=== PATIENT | female | born 1990 | race Two or more races ===

== ENCOUNTER 2021-06-11 06:25 | Observation (INO) | payer SELFPAY ==
[2021-06-11] VITALS (19 sets, daily range): BP systolic 73–121; BP diastolic 35–80
[~2021-06-11] VITALS: Ht 160 cm; Wt 72.7 kg
[~2021-06-11 06:25] MED LIST: HYDROmorphone 2 MG/ML VIAL IVP PRN; IV RINGERS,LACTATED 1000ML 1,000 ML IV SCH; MORPHINE SULFATE 2 MG/ML INJ. IVP PRN; PROCHLORPERAZINE 10 MG/2 ML VIAL. IVP PRN; fentaNYL PF VIAL 100 MCG/2 ML VIAL IVP PRN
[2021-06-11] MEDS ORDERED: LIDOCAINE 2% PF 5 ML VIAL. ONE (06:37)
[2021-06-11] MEDS ORDERED: ONDANSETRON PF 4 MG/2 ML VIAL. ONE (06:37)
[2021-06-11] MEDS ORDERED: PROPOFOL 10 MG/ML (20ML) VIAL. IV ONE (06:37)
[2021-06-11] MEDS ORDERED: DEXAMETHASONE SOD PHOS 4 MG/ML VIAL ONE (06:37)
[2021-06-11] MEDS ORDERED: DOXYCYCLINE HYCLATE 100 MG TABLET PO ONE (07:15)
[2021-06-11 07:17] LABS: BASO # 0.1 x10^3/uL (0.0-0.2); BASO % 1 % (0-3); EOS # 0.2 x10^3/uL (0.0-0.7); EOS % 3 % (0-3); HEMATOCRIT 40.2 % (36.0-47.0); HEMOGLOBIN 13.7 g/dL (12.0-15.5); LYMPH # 2.6 x10^3/uL (1.0-4.8); LYMPH % 34 % (24-48); MEAN CORPUSCULAR HEMOGLOBIN 30 pg (25-35); MEAN CORPUSCULAR HGB CONC 34 g/dL (31-37); MEAN CORPUSCULAR VOLUME 89 fL (79-100); MONO # 0.7 x10^3/uL (0.0-1.1); MONO % 9 % (0-9); NEUT # 4.1 x10^3/uL (1.8-7.7); NEUT % 54 % (31-73); PLATELET COUNT 225 x10^3/uL (140-400); WHITE BLOOD COUNT 7.6 x10^3/uL (4.0-11.0)
[2021-06-11] MEDS ORDERED: fentaNYL PF VIAL 100 MCG/2 ML VIAL ONE ×2 (07:33→07:34)
[2021-06-11] MEDS ORDERED: MIDAZOLAM HCL/PF 2 MG/2 ML VIAL. ONE (07:34)
--- NOTE | 2021-06-11 07:37 | PDOC1 ---
[facility] H&P Date of Admission: Date of Admission: History of Present Illness: [place] 30y who was originally referred for D&C on 04/29/21. The pt was called on the and returned the call 05/13. Since almost 2wks had passed it was surprising that the POC had not passed on there own. Another u/s was performed revealing the following: Persistent complex fluid and echogenic material within the endometrial canal which may represent residual blood products or retained products of conception. Normal ovaries. Medical management was discussed with the pt, but she ultimately decided for a D&C. PMH: Denies PSH: Denies Meds: None All: NKDA SH: no tob, no EtOH FH: noncontributory Medications: Meds: Current Medications Medications (Trade) Dose Ordered Sig/Tejal Route PRN Reason Start Time Stop Time Status Last Admin Dose Admin Doxycycline Hyclate (Vibra-Tab) 200 mg 1X ONCE PO 06/11/21 07:15 06/11/21 07:16 DC 06/11/21 07:11 Allergies: Coded Allergies: No Known Drug Allergies (Unverified , 06/07/21) Physical Exam: Vital Signs: Vital Signs Date Time Temp Pulse Resp B/P (MAP) Pulse Ox O2 Delivery O2 Flow Rate FiO2 06/11/21 06:58 97.9 80 16 116/69 99 Room Air 97.9 PE: GENERAL: No apparent distress. Alert and oriented. HEENT: Head normocephalic, atraumatic. NECK: Supple LUNGS: Clear to auscultation. HEART: RRR, S1, S2 present, pulses intact ABDOMEN: Soft, positive bowel sounds. EXTREMITIES: No cyanosis or edema. NEUROLOGIC: Normal speech, normal tone PSYCHIATRIC: Normal affect, normal mood. SKIN: No ulceration. Labs: Laboratory Tests Test 06/11/21 06:04 06/11/21 07:00 POC Urine HCG, Qualitative Hcg positive (Negative) White Blood Count 7.6 x10^3/uL (4.0-11.0) Red Blood Count 4.50 x10^6/uL (3.50-5.40) Hemoglobin 13.7 g/dL (12.0-15.5) Hematocrit 40.2 % (36.0-47.0) Mean Corpuscular Volume 89 fL (79-100) Mean Corpuscular Hemoglobin 30 pg (25-35) Mean Corpuscular Hemoglobin Concent 34 g/dL (31-37) Red Cell Distribution Width 14.0 % (11.5-14.5) Platelet Count 225 x10^3/uL (140-400) Neutrophils (%) (Auto) 54 % (31-73) Lymphocytes (%) (Auto) 34 % (24-48) Monocytes (%) (Auto) 9 % (0-9) Eosinophils (%) (Auto) 3 % (0-3) Basophils (%) (Auto) 1 % (0-3) Neutrophils # (Auto) 4.1 x10^3/uL (1.8-7.7) Lymphocytes # (Auto) 2.6 x10^3/uL (1.0-4.8) Monocytes # (Auto) 0.7 x10^3/uL (0.0-1.1) Eosinophils # (Auto) 0.2 x10^3/uL (0.0-0.7) Basophils # (Auto) 0.1 x10^3/uL (0.0-0.2) Laboratory Tests 06/11/21 07:00 Laboratory Tests 06/11/21 07:00 Assessment & Plan: A/P 30y with persistent complex fluid in uterus 1.) Persistent complex fluid in uterus likely retained POC, scheduled for D&C SELENA COSBY MD Jun 11, 2021 07:37
--- NOTE | 2021-06-11 08:33 | NUR ---
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 pT STATED SHE STARTED BLEEDING JANUARY 20 AND WENT TO HOSPITAL, WHERE PHYSICIAN TOLD HER SHE HAD HAD A SPONTANEOUS MISCARRIAGE. SHE SAYS SHE EXPELLED A CLOT AND BLOOD. ON JANUARY 29, SHE WAS STILL BLEEDING AND WENT TO PHYSICIAN, WHO GAVE HER SOME PILLS TO EXPEL THE REMAINING FETUS. ON February, SHE SAYS SHE WAS STILL BLEEDING. CURRENTLY, SHE IS HAVING YELLOW DISCHARGE. PT DENIES ANY SEXUAL INTERCOURSE SINCE JANUARY 20.
[2021-06-11] MEDS ORDERED: KETOROLAC 30 MG/ML VIAL. ONE (08:37)
[2021-06-11] MEDS ORDERED: SEVOFLURANE 16 TO 30 MINUTES. IH ONE (08:53)
[2021-06-11] MEDS ORDERED: ALBUMIN HUMAN 5% 500 ML IV ONE ×6 (09:03→11:16)
--- NOTE | 2021-06-11 09:50 | PDOC ---
Date and Time Near the conclusion of the procedure the patient had a sudden drop in ETCO2 and undetectable BP. No pulse obtainable, no heart tones, RSR. EBL 2+L CPR started, Calcium and epi given. Pulse returned within a couple minutes. Her BP has remained 110-120 with HR 90s since that time. Airway removed and taken to PACU. She is awake and following commands Albumin and blood started in OR Suspect acute hypovolemic shock from blood loss. Venous air or other embolus possible but less likely. Will transfuse and once euvolemic check Hb. Her preop was 13 She will need to stay for observation overnight. Current Medications Current Medications Fentanyl Citrate (Fentanyl 2ml Vial) 25 mcg PRN Q5MIN PRN IVP MILD PAIN 1-3; Start 06/11/21 at 06:00; Stop 06/11/21 at 20:00 Fentanyl Citrate (Fentanyl 2ml Vial) 50 mcg PRN Q5MIN PRN IVP MODERATE PAIN 4- 6; Start 06/11/21 at 06:00; Stop 06/11/21 at 20:00 Morphine Sulfate (Morphine Sulfate) 1 mg PRN Q10MIN PRN IVP SEVERE PAIN 7-10; Start 06/11/21 at 06:00; Stop 06/11/21 at 20:00 Ringer's Solution 1,000 ml @ 30 mls/hr Q24H IV ; Start 06/11/21 at 06:00; Stop 06/11/21 at 17:59 Hydromorphone HCl (Dilaudid) 0.5 mg PRN Q10MIN PRN IVP SEVERE PAIN 7-10, 2nd CHOICE; Start 06/11/21 at 06:00; Stop 06/11/21 at 20:00 Prochlorperazine Edisylate (Compazine) 5 mg PACU PRN PRN IVP NAUSEA, MRX1; S tart 06/11/21 at 06:00; Stop 06/11/21 at 20:00 Propofol (Diprivan) 200 mg STK-MED ONCE IV ; Start 06/11/21 at 06:37; Stop 06/11/21 at 06:37; Status DC Lidocaine HCl (Lidocaine Pf 2% Vial) 5 ml STK-MED ONCE .ROUTE ; Start 06/11/21 at 06:37; Stop 06/11/21 at 06:37; Status DC Ondansetron HCl (Zofran) 4 mg STK-MED ONCE .ROUTE ; Start 06/11/21 at 06:37; Stop 06/11/21 at 06:37; Status DC Dexamethasone Sodium Phosphate (Decadron) 4 mg STK-MED ONCE .ROUTE ; Start 06/11/21 at 06:37; Stop 06/11/21 at 06:37; Status DC Doxycycline Hyclate (Vibra-Tab) 200 mg 1X ONCE PO Last administered on 06/11/21at 07:11; Start 06/11/21 at 07:15; Stop 06/11/21 at 07:16; Status DC Fentanyl Citrate (Fentanyl 2ml Vial) 100 mcg STK-MED ONCE .ROUTE ; Start 06/11/21 at 07:33; Stop 06/11/21 at 07:33; Status DC Fentanyl Citrate (Fentanyl 2ml Vial) 100 mcg STK-MED ONCE .ROUTE ; Start 06/11/21 at 07:34; Stop 06/11/21 at 07:34; Status DC Midazolam HCl (Versed) 2 mg STK-MED ONCE .ROUTE ; Start 06/11/21 at 07:34; Stop 06/11/21 at 07:35; Status DC Ketorolac Tromethamine (Toradol 30mg Vial) 30 mg STK-MED ONCE .ROUTE ; Start 06/11/21 at 08:37; Stop 06/11/21 at 08:37; Status DC Sevoflurane (Ultane) 15 ml STK-MED ONCE IH ; Start 06/11/21 at 08:53; Stop 06/11/21 at 08:53; Status DC Albumin Human 500 ml @ As Directed STK-MED ONCE IV ; Start 06/11/21 at 09:03; Stop 06/11/21 at 09:04; Status DC Albumin Human 500 ml @ As Directed STK-MED ONCE IV ; Start 06/11/21 at 09:36; Stop 06/11/21 at 09:37; Status DC Albumin Human 500 ml @ 125 mls/hr 1X ONCE IV ; Start 06/11/21 at 09:45; Stop 06/11/21 at 13:44; Status UNV Active Scripts Active Reported No Known Medications Prior To Admisstion (Info) Each 1 Each DAILY Pertinent Labs/Test Laboratory Tests Test 06/11/21 06:04 06/11/21 06:47 06/11/21 07:00 Bedside Urine HCG, Qualitative Hcg positive (Negative) Maternal Serum HCG Beta Subunit 48 mIU/mL (0-5) White Blood Count 7.6 x10^3/uL (4.0-11.0) Red Blood Count 4.50 x10^6/uL (3.50-5.40) Hemoglobin 13.7 g/dL (12.0-15.5) Hematocrit 40.2 % (36.0-47.0) Mean Corpuscular Volume 89 fL (79-100) Mean Corpuscular Hemoglobin 30 pg (25-35) Mean Corpuscular Hemoglobin Concent 34 g/dL (31-37) Red Cell Distribution Width 14.0 % (11.5-14.5) Platelet Count 225 x10^3/uL (140-400) Neutrophils (%) (Auto) 54 % (31-73) Lymphocytes (%) (Auto) 34 % (24-48) Monocytes (%) (Auto) 9 % (0-9) Eosinophils (%) (Auto) 3 % (0-3) Basophils (%) (Auto) 1 % (0-3) Neutrophils # (Auto) 4.1 x10^3/uL (1.8-7.7) Lymphocytes # (Auto) 2.6 x10^3/uL (1.0-4.8) Monocytes # (Auto) 0.7 x10^3/uL (0.0-1.1) Eosinophils # (Auto) 0.2 x10^3/uL (0.0-0.7) Basophils # (Auto) 0.1 x10^3/uL (0.0-0.2) Laboratory Tests Test 06/11/21 06:04 06/11/21 06:47 06/11/21 07:00 Bedside Urine HCG, Qualitative Hcg positive (Negative) Maternal Serum HCG Beta Subunit 48 mIU/mL (0-5) White Blood Count 7.6 x10^3/uL (4.0-11.0) Red Blood Count 4.50 x10^6/uL (3.50-5.40) Hemoglobin 13.7 g/dL (12.0-15.5) Hematocrit 40.2 % (36.0-47.0) Mean Corpuscular Volume 89 fL (79-100) Mean Corpuscular Hemoglobin 30 pg (25-35) Mean Corpuscular Hemoglobin Concent 34 g/dL (31-37) Red Cell Distribution Width 14.0 % (11.5-14.5) Platelet Count 225 x10^3/uL (140-400) Neutrophils (%) (Auto) 54 % (31-73) Lymphocytes (%) (Auto) 34 % (24-48) Monocytes (%) (Auto) 9 % (0-9) Eosinophils (%) (Auto) 3 % (0-3) Basophils (%) (Auto) 1 % (0-3) Neutrophils # (Auto) 4.1 x10^3/uL (1.8-7.7) Lymphocytes # (Auto) 2.6 x10^3/uL (1.0-4.8) Monocytes # (Auto) 0.7 x10^3/uL (0.0-1.1) Eosinophils # (Auto) 0.2 x10^3/uL (0.0-0.7) Basophils # (Auto) 0.1 x10^3/uL (0.0-0.2) LAST VITALS Vital Signs Date Time Temp Pulse Resp B/P (MAP) Pulse Ox O2 Delivery O2 Flow Rate FiO2 06/11/21 06:58 97.9 80 16 116/69 99 Room Air 97.9 CHARLEEN NUGENT MD Jun 11, 2021 09:50
[2021-06-11] MEDS ORDERED: CALCIUM CHLORIDE 1,000 MG/10 ML DISP.SYRIN ONE (10:52)
[2021-06-11] MEDS ORDERED: EPINEPHrine SYRINGE 1 MG/10 ML SYRINGE ONE (10:52)
[2021-06-11 11:05] LABS: HEMATOCRIT 25.9 % (36.0-47.0); HEMOGLOBIN 8.5 g/dL (12.0-15.5); RED BLOOD COUNT 2.88 x10^6/uL (3.50-5.40); RED CELL DISTRIBUTION WIDTH 13.8 % (11.5-14.5); WHITE BLOOD COUNT 12.7 x10^3/uL (4.0-11.0)
[2021-06-11] MEDS ORDERED: IV NORMAL SALINE 1000ML BAG 1,000 ML IV SCH (11:15)
[2021-06-11] MEDS ORDERED: diphenhydrAMINE HCL 25 MG CAPSULE PO PRN (11:15)
[2021-06-11] MEDS ORDERED: 0.9 % SODIUM CHLORIDE 10 ML DISP.SYRIN. IV PRN (11:15)
[2021-06-11] MEDS ORDERED: MORPHINE SULFATE 2 MG/ML INJ. IV PRN (11:15)
[2021-06-11] MEDS ORDERED: NALOXONE 0.4 MG/ML VIAL. IV PRN (11:15)
[2021-06-11] MEDS ORDERED: DEXTROSE 50% 25 GM / 50ML DISP.SYRIN. IV PRN (11:15)
[2021-06-11] MEDS ORDERED: IBUPROFEN 200 MG TABLET. PO PRN (11:15)
[2021-06-11] MEDS ORDERED: diphenhydrAMINE 50 MG/ML VIAL IV PRN (11:15)
[2021-06-11] MEDS ORDERED: oxyCODONE/APAP 5/325 1 TAB TABLET PO PRN ×2 (11:15)
[2021-06-11] MEDS ORDERED: IV DEXTROSE 5 %-0.45 % NACL 1,000 ML IV SCH (11:15)
--- NOTE | 2021-06-11 12:26 | PDOC4 ---
OPERATIVE NOTE: PreOp Dx: Persistent complex fluid in uterus PostOp Dx: Retained POC Procedure: Suction D&C Surgeon: Hakeem Cosby Anesthesia: GETA EBL: 2000 cc Fluids: 500 cc colloid, 1000 cc crystalloid, 2 UpRBC Specimen: POC Complications: Coded during procedure likely related to hypovolemia from blood loss SELENA COSBY MD Jun 11, 2021 12:26
--- NOTE | 2021-06-11 12:52 | NUR ---
Dr. Boswell at to discuss plan of care, pt. verbalized understanding
--- NOTE | 2021-06-11 13:40 | OP ---
DATE OF SURGERY: 06/11/2021 PREOPERATIVE DIAGNOSIS: Persistent complex fluid seen in uterus over a month. POSTOPERATIVE DIAGNOSIS: Retained products of conception. PROCEDURE: Suction D and C. SURGEON: Arben Boswell MD. ANESTHESIA: General endotracheal intubation. ESTIMATED BLOOD LOSS: 2000 mL. FLUIDS: 500 of colloid, 1000 crystalloid and 2 units of packed red blood cells. SPECIMENS: Products of conception. COMPLICATION: The patient coded during the procedure, likely related to hypovolemia from blood loss. DESCRIPTION OF PROCEDURE: The patient was taken to the operating room where general endotracheal intubation was obtained without difficulty. The patient was prepped and draped in the normal sterile fashion. A posterior weighted speculum was placed in the patient's vagina and a right angle retractor was used to visualize the anterior lip of the cervix, which was then grasped with a single tooth tenaculum. Cervix was then dilated to allow for a 7 mm curved curette. Due to the [facility] tubing shortage, the available tubing, connectors, and suctioned curette were connected together and sealed with Tegaderm. The curette was then placed, but could not reach the uterine fundus because it retracted into the connector. At that point, the suction was activated and the curette was rotated to remove the products of conception. After about 4 passes, the patient had significant bleeding. Since the suction curette was unable to reach the fundus, sharp curettage was performed. The sharp curettage was able to reach the uterine fundus and was able to remove the products of conception. The suction curette was exchanged for a 10 mm. The same issue of retracting into the connector which prevent the curette from reaching the fundus persisted., Another pass with a sharp curette was performed while the canister was changed. The 10 mm suction was again and finally one last sharp curettage was performed. At that time minimal bleeding was noted. Around that same time, the patient was found to not have a blood pressure and her end tidal volume dropped. The patient became pulseless and required CPR. She received epinephrine and calcium as well as blood transfusion. The patient recovered after approximately 30 seconds of CPR. Once resuscitated, the patient continued to have minimal bleeding. While resuscitation efforts were made the vaginal instruments (tenaculum, he posterior weighted speculum and the right angle retractor) were removed so that the patient could taken out of stirrups and be place in supine position. After resuscitation, good hemostasis was noted. The patient was taken to the recovery room to complete her transfusion of blood. Prior to the procedure, the patient received doxycycline [address] MAGALI/FIDEL DR: Roya TID: [id number] MTDD
--- NOTE | 2021-06-11 14:22 | NUR ---
Pt. rates her pain 06/25, Dr. Boswell called about pain medication, states Morphine 1-2 mg as ordered
--- NOTE | 2021-06-11 14:26 | NUR ---
Dr. Pastor at BS to talk with pt
[2021-06-11] MEDS: MORPHINE SULFATE 2 MG/ML INJ. IV PRN ×2 (15:16→17:02)
--- NOTE | 2021-06-11 15:37 | NUR ---
Pt. resting quietly at this time
--- NOTE | 2021-06-11 16:11 | NUR ---
Dr. Boswell in house, 1600 labs drawn and sent to lab, pt. continues to rest quietly.
[2021-06-11 16:16] LABS: HEMATOCRIT 22.4 % (36.0-47.0); HEMOGLOBIN 7.7 g/dL (12.0-15.5); RED BLOOD COUNT 2.55 x10^6/uL (3.50-5.40); RED CELL DISTRIBUTION WIDTH 13.7 % (11.5-14.5)
--- NOTE | 2021-06-11 18:30 | NUR ---
Pt. up to chair without difficulty or dizziness, bed changed, pad and panties applied. Pt. tolerated all well. Pt. back to bed. Tolerating sips of water and some jello.
[2021-06-11] MEDS: IV RINGERS,LACTATED 1000ML 1,000 ML IV SCH (19:52)
[2021-06-11] MEDS ORDERED: DOCUSATE SODIUM 100 MG CAPSULE. PO SCH (21:00)
[2021-06-12] VITALS (24 sets, daily range): BP systolic 76–105; BP diastolic 41–62
[2021-06-12] MEDS: IV RINGERS,LACTATED 1000ML 1,000 ML IV SCH (06:12)
[2021-06-12 07:28] LABS: BASO % 0 % (0-3); EOS # 0.1 x10^3/uL (0.0-0.7); EOS % 1 % (0-3); LYMPH # 2.2 x10^3/uL (1.0-4.8); LYMPH % 34 % (24-48); MEAN CORPUSCULAR HEMOGLOBIN 31 pg (25-35); MEAN CORPUSCULAR HGB CONC 35 g/dL (31-37); MEAN CORPUSCULAR VOLUME 89 fL (79-100); MONO # 0.7 x10^3/uL (0.0-1.1); MONO % 10 % (0-9); NEUT # 3.7 x10^3/uL (1.8-7.7); NEUT % 55 % (31-73); PLATELET COUNT 105 x10^3/uL (140-400); RED CELL DISTRIBUTION WIDTH 14.3 % (11.5-14.5); WHITE BLOOD COUNT 6.6 x10^3/uL (4.0-11.0)
[2021-06-12 07:40] LABS: HEMATOCRIT 18.7 % (36.0-47.0); HEMOGLOBIN 6.4 g/dL (12.0-15.5)
--- NOTE | 2021-06-12 09:56 | PDOC ---
[employer] PROGRESS NOTE Date of Service: DATE: 06/12/21 TIME: 09:55 Subjective: The pt no longer has abd pain. She still can not tyrell PO. Every time she tries to eat she vomits. She also has a ROSE this am. Objective: Vital Signs: Vital Signs Date Time Temp Pulse Resp B/P (MAP) Pulse Ox O2 Delivery O2 Flow Rate FiO2 06/11/21 09:36 Mask 6 06/11/21 09:36 97.2 93 16 123/64 99 97.2 Vital Signs Date Time Temp Pulse Resp B/P (MAP) Pulse Ox O2 Delivery O2 Flow Rate FiO2 06/12/21 09:35 98.1 91 20 80/58 98.1 06/12/21 06:30 100 06/12/21 06:23 Room Air 06/11/21 10:35 6 Labs: Laboratory Tests Test 06/11/21 11:00 06/11/21 16:05 06/12/21 06:10 White Blood Count 12.7 x10^3/uL (4.0-11.0) H 11.0 x10^3/uL (4.0-11.0) 6.6 x10^3/uL (4.0-11.0) Red Blood Count 2.88 x10^6/uL (3.50-5.40) L 2.55 x10^6/uL (3.50-5.40) L 2.10 x10^6/uL (3.50-5.40) L Hemoglobin 8.5 g/dL (12.0-15.5) #L 7.7 g/dL (12.0-15.5) L 6.4 g/dL (12.0-15.5) *L Hematocrit 25.9 % (36.0-47.0) L 22.4 % (36.0-47.0) L 18.7 % (36.0-47.0) *L Mean Corpuscular Volume 90 fL (79-100) 88 fL (79-100) 89 fL (79-100) Mean Corpuscular Hemoglobin 30 pg (25-35) 30 pg (25-35) 31 pg (25-35) Mean Corpuscular Hemoglobin Concent 33 g/dL (31-37) 35 g/dL (31-37) 35 g/dL (31-37) Red Cell Distribution Width 13.8 % (11.5-14.5) 13.7 % (11.5-14.5) 14.3 % (11.5-14.5) Platelet Count 115 x10^3/uL (140-400) L 112 x10^3/uL (140-400) L 105 x10^3/uL (140-400) L Neutrophils (%) (Auto) 55 % (31-73) Lymphocytes (%) (Auto) 34 % (24-48) Monocytes (%) (Auto) 10 % (0-9) H Eosinophils (%) (Auto) 1 % (0-3) Basophils (%) (Auto) 0 % (0-3) Neutrophils # (Auto) 3.7 x10^3/uL (1.8-7.7) Lymphocytes # (Auto) 2.2 x10^3/uL (1.0-4.8) Monocytes # (Auto) 0.7 x10^3/uL (0.0-1.1) Eosinophils # (Auto) 0.1 x10^3/uL (0.0-0.7) Basophils # (Auto) 0.0 x10^3/uL (0.0-0.2) Laboratory Tests 06/11/21 11:00 06/11/21 16:05 06/12/21 06:10 Laboratory Tests 06/12/21 06:10 Physical Exam: GENERAL: No apparent distress. Alert and oriented. HEENT: Head normocephalic, atraumatic. NECK: Supple LUNGS: Clear to auscultation. HEART: RRR, S1, S2 present, pulses intact ABDOMEN: Soft, positive bowel sounds. EXTREMITIES: No cyanosis or edema. NEUROLOGIC: Normal speech, normal tone PSYCHIATRIC: Normal affect, normal mood. SKIN: No ulceration. Assessment & Plan: A/P 30y with persistent complex fluid in uterus 1.) PO feeling better, still difficulty tyrell PO 2.) Anemia - ~2-3 L of blood loss intraop. Hgb 13.7 -> 8.5 (with 2U pRBC given intraop) -> 7.7 (yesterday evening) -> 6.4 (this am). Will give an additional unit of pRBC. 3.) N/V likely 2/2 blood loss. Will continue to monitor 4.) Disposition if appropriate rise after transfusion and when pt tyrell PO, will d/c home SELENA COSBY MD Jun 12, 2021 09:55
[2021-06-12] MEDS ORDERED: OXYC1TAB15 PO (15:31)
--- NOTE | 2021-06-12 15:55 | NUR ---
RN draws labs and sent in tube to be run
--- NOTE | 2021-06-12 16:10 | NUR ---
Pt. up to shower without difficulty
[2021-06-12 16:12] LABS: HEMATOCRIT 25.6 % (36.0-47.0); HEMOGLOBIN 8.8 g/dL (12.0-15.5); RED BLOOD COUNT 2.86 x10^6/uL (3.50-5.40); WHITE BLOOD COUNT 8.6 x10^3/uL (4.0-11.0)
--- NOTE | 2021-06-12 16:45 | NUR ---
Pt. was given verbal and written discharge instructions. Pt. verbalized understanding without any questions or concerns. Pt. verbalized understanding concerning follow-up appointment on 06/[address] Boswell. Pt. waiting with aunt for transportation home.
--- NOTE | 2021-06-13 09:10 | DS ---
DATE OF DISCHARGE: 06/12/2021 ADMISSION DIAGNOSIS: Persistent complex fluid in uterus. DISCHARGE DIAGNOSES: 1. Retained products of conception. 2. Blood loss anemia. PROCEDURE: Suction D and C. BRIEF HOSPITAL COURSE: The patient is a 30-year-old 2, para 1-0-0-1 who was originally referred to our office on 04/29/2021 for D and C. The patient was called on the , but did not return the call to the 13 of May. Since it had been almost 2 weeks past it was surprising that the products of conception had not passed on their own. Another ultrasound was ordered and performed revealing persistent complex fluid and echogenic material within the endometrial cavity, which may represent residual blood products or retained products of conception. The patient was discussed medical management and initially was willing to try, but ultimately decided for D and C. The patient underwent said procedure, which was complicated by blood loss of 2000 to 2500 mL of blood loss. See operative note for full detail. At one point in the procedure the patient's blood pressure dropped and loss of pulse and required CPR for a short period of time. The patient also received 2 units intraoperatively. After her blood transfusion in the recovery room, a CBC was ordered revealing her blood count to be 8.5. The patient was subsequently transferred to the floor for continued monitoring. The patient remained with a low blood pressure, but a normal pulse. Her CBC was rechecked 4 hours after she reached the floor, which revealed a drop from 8.5 to 7.7. The patient remained stable overnight and had a hemoglobin performed the following morning, which returned at 6.4. Since the patient was below 7, she received one more unit of packed red blood cells, which got her up to 8.8 that morning. The previous evening the patient was having some abdominal pain, which resolved the following morning, but the patient did report a persistent headache as well as vomiting every time she ate. By noon and after her final transfusion, the patient was tolerating p.o. much better, but still had a little bit of headache. Since the patient was meeting all discharge criteria, the patient was subsequently discharged home. DISCHARGE INSTRUCTIONS: The patient was told not to lift anything greater than 20 pounds, have pelvic rest for 6 weeks, not to drive on narcotics. CALL IF: The patient was to call if she had fevers, chills, nausea, vomiting, abdominal pain, or any additional questions or concerns. FOLLOWUP APPOINTMENT: The patient was to follow up in the office on 06/17 at 10:45 for her postop appointment. DISCHARGE MEDICATIONS: The patient was given a prescription for Percocet 5, ten pills; Motrin 800 mg, 30 pills; ferrous sulfate 325 mg, 30 pills and Colace 100 mg, [address]: Roya TID: [id number]
--- NOTE | 2021-06-14 14:07 | PATHOLOGY ---
[facility] Accession Number: [id number] . 01 Material submitted: . product of conception - RETAINED PRODUCTS OF CONCEPTION . 01 Clinical history: . DILATION AND CURETTAGE THIS WAS IN 4 CONTAINERS WITH 2 "SOCKS", CONDENSED FOR TRANSPORT OR JUST COULDN'T GET ALL IN 1 CONTAINER . 02 Diagnosis: Uterine contents, suction D and C: - Abundant blood clot focally containing largely necrotic and few fibrotic chorionic villi, few segments of focally necrotic decidual tissue, and few minute segments of endometrial and myometrial tissue. (JPM:[facility]; 06/14/2021) [facility] 06/14/2021 1315 Local . 02 Electronically signed: . Keanu Dwyer MD, Pathologist NPI- [id number] . 01 Gross description: . The specimen is received in formalin, labeled "Robert Ta, retained products of conception". Received is a moderate amount of blood coagulum admixed with light santiago soft tissue measuring 19.2 x 14.8 x 4.1 cm in aggregate dimensions. or embryonic tissue is not grossly identified. Vesicular structures are absent. The specimen is submitted representatively in cassettes A1 through A3. ([facility]; 06/12/2021) . After initial microscopic examination, additional sales representative publications sections of soft tissue are submitted in cassettes A4 through A12. ([facility]; 06/13/2021) QAC/QAC 06/13/2021 1550 Local . 02 Pathologist provided ICD-10: O73.1 . 02 CPT . 378190 Specimen Comment: A courtesy copy of this report has been sent to [phone] Specimen Comment: Report sent to Performed at: 01 [facility] [address] [place] [address] [address], [place] [id number] MD Amos Guerra MD Phone: [phone] Performed at: [address] [id number] MD Keanu Dwyer MD Phone: [phone]
--- NOTE | 2021-06-26 10:28 | NUR ---
Late entry - Ringers solution started on 06/11/21 at 1952 and stopped at 0610 on 06/12/21. Ringers solution started on 06/12/21 at 0611 and stopped at 1412 on 06/12/21.
== END 2021-06-12 18:15 | disposition home or self-care (01) ==
LOC: SURG 06:25 → INTOOBSV 11:10 → 3 SO LND 11:10 → OBSVTOIN 11:10 → 3 SO LND 12:06
PROVIDERS: ADMIT Obstetrics & Gynecology; ATTEND Obstetrics & Gynecology
DX: O73.1 Retained portions of placenta and membranes, without hemorrhage (principal); O26.891 Other specified pregnancy related conditions, first trimester; N85.8 Other specified noninflammatory disorders of uterus; D50.0 Iron deficiency anemia secondary to blood loss (chronic); Z3A.00 Weeks of gestation of pregnancy not specified
CPT/HCPCS: 36415; 36430; 59820; 81025; 84702; 85025; 85027; 86850; 86900; 86901; 86920; 88305; 96361; 96374; 96376; A4213; A4930; A6258; G0378; G0379; J0171; J1100; J2250; J2270; J2405; J2704; J3010; J3490; J7120; P9016; P9045; A4322; J1885